=== PATIENT | male | born 1990 | race Caucasian/White ===

== ENCOUNTER 2024-10-14 21:07 | Emergency (ER) | payer OTHER, SELFPAY ==
[2024-10-14 21:14] VITALS: BP 143/90
[2024-10-14 21:27] LABS: Urine Character Clear (Clear)
[2024-10-14 21:28] LABS: Hematocrit 43.4 % (39.0-52.0); Hemoglobin 15.3 g/dL (13.0-18.0); Mean Corp Hgb Conc. 35.3 g/dL (33.0-37.0); Mean Corpuscular Volume 85.4 fL (80.0-94.0); Nucleated Red Blood Cells % 0 % (-); Platelet Count 370 10^3/uL (130-400); Red Cell Dist. Width 12.1 % (11.5-14.5)
[2024-10-14 21:34] LABS: Urine Red Blood Cell 30-40 /HPF (0-2); Urine Squamous Cell >30 /LPF (Few)
[2024-10-14 21:44] LABS: ALT (SGPT) 35 U/L (0-50); AST (SGOT) 33 U/L (17-59); Albumin 4.9 g/dl (3.5-5.0); Alkaline Phosphatase 53 U/L (38-126); Blood Urea Nitrogen 16 mg/dl (9-20); Calcium 10.7 mg/dl (8.4-10.2); Carbon Dioxide 21 mmol/L (22-30); Chloride 105 mmol/L (98-107); Glucose 107 mg/dl (70-99); Potassium 4.6 mmol/L (3.5-5.1); Sodium 135 mmol/L (135-145); Total Protein 7.9 g/dl (6.3-8.2); eGFR > 60.00
--- NOTE | 2024-10-14 23:50 | ED.GENMED ---
History of Present Illness
General
Chief Complaint: Flank Pain
Source: patient and family
Time Seen by Provider: 10/14/24 23:38
History of Present Illness
History of Present Illness:
34-year-old male with past medical history of hypothyroidism and autism presenting to the ER for evaluation of right flank pain that began earlier this morning, waxes and wanes, radiating towards the right lower abdomen, mildly nauseous earlier but
now resolved and stating sensation as to if he needs to have a bowel movement. Denies any history of similar. Did not take anything other than MiraLAX for symptoms but states this did not give him much relief. Denies any fevers, chills, rigors,
urinary frequency/urgency/dysuria or hematuria.
Past History
Past History
ED Past Medical History: Hypothyroidism and Psychiatric
ED Past Surgical History: Appendectomy
Social History
Tobacco: Non-smoker
Alcohol: None
Drug: None
Personal: Single
Living: with family
Review of Systems
Review of Systems
All Other Systems: ROS reviewed and negative except as documented in HPI and ROS
Phy Exam
Physical Exam
Physical Exam:
GENERAL: Alert , in no apparent distress
EYE: clear conjunctiva b/l
HEAD: NCAT
ENT: o/p clr, mmm.
ABDOMEN: Soft, without focal tenderness, no r/g, no cvat
NEUROLOGICAL: Alert and oriented
SKIN: Warm and dry, skin intact.
MUSCULOSKELETAL: No edema, well perfused.
PSYCH: Normal and appropriate interaction.
Scores
Heart Failure Risk
Heart Failure Risk Score: Not Applicable
Heart Score for Chest Pain Patients
STEMI patient?: Not applicable
Withdrawal Assessment of Alcohol
Withdrawal Assessment Completed?: Not applicable
Course
Orders/Labs/Results
Orders:
Orders
10/14/24 21:22
Complete Blood Count/With Diff Urgent
Comprehensive Metabolic Panel Urgent
Urinalysis Reflex To Culture Urgent
Date Specimen was Collected: 10/14/24
Time Specimen was Collected: 21:17
Urine Microscopic Reflex Cult Urgent
Urine Culture Urgent
JURGEN Source: U
Specimen Description:
Date Specimen was Collected: 10/14/24
Time Specimen was Collected: 21:17
10/14/24 21:53
CT Abd/pel Without Iv Or Oral Urgent
Comment:
Reason For Exam: R flank pain, probbaly kidney stone
10/14/24 23:49
Ibuprofen [Motrin] 800 mg PO NOW STA
Oxycodone/Acetaminophen [Percocet 5/325] 1 tablet PO NOW STA
Tamsulosin [Flomax] 0.4 mg PO NOW STA
Abnormal Lab Results
10/14/24
21:22
WBC 12.4 H 10^3/uL
(4.8-10.8)
Absolute Neuts (auto) 9.3 H 10^3/uL
(1.4-6.5)
Absolute Monos (auto) 1.0 H 10^3/uL
(0.1-0.6)
Neutrophils % 75.3 H %
(42.2-75.2)
Lymphocytes % 15.6 L %
(20.5-51.1)
Carbon Dioxide 21 L mmol/L
(22-30)
Glucose 107 H mg/dl
(70-99)
Calcium 10.7 H mg/dl
(8.4-10.2)
Ur Occult Blood Reflex 4+ A
(Negative)
Leukocyte Esterase Rfl 1+ A
(Negative)
Urine RBC 30-40 A /HPF
(0-2)
Urine Bacteria (Reflex) Few A
(Negative)
Urine Albumin (Reflex) 1+ A
(Neg - Trace)
10/14/24 21:22
10/14/24 21:22
Vital Signs
Initial and Last Documented VS:
Initial Vital Signs
Temp Pulse Resp BP Pulse Ox
98.4 F 91 20 143/90 99
10/14/24 21:14 10/14/24 21:14 10/14/24 21:14 10/14/24 21:14 10/14/24 21:14
Last Documented Vital Signs
Temp Pulse Resp BP Pulse Ox
98.5 F 91 20 143/90 99
10/15/24 00:05 10/14/24 21:14 10/14/24 21:14 10/14/24 21:14 10/14/24 23:50
MDM/Problems Addressed
Differential Diagnosis Includes:
Renal/ureteral colic
Urinary tract infection
constipation
Colitis
diverticulitis
Musculoskeletal back pain
MDM/Problems Addressed:
34-year-old male presented to the ER for evaluation of a sudden onset of right flank pain, nausea and sensation of tenesmus. Symptoms now mostly resolved. Labs and imaging have been ordered from triage which shows a 3 to 4 mm distal ureteral stone
just proximal to the UVJ. Urinalysis without signs of infection. Labs do noted leukocytosis but otherwise reassuring with normal renal function. I did offer the patient pain medication however he declined IV medications and was instead okay with
oral medications. Will send home with prescription for Flomax, pain control and antiemetics. Information for urology provided. Patient aware of return precautions to the ER.
*Radiology
Radiology exam reviewed: radiology read reviewed
*Pulse Oximetry
SaO2: 99
Oxygen Mode of Delivery: Room air
Patient hypoxic: no
*Critical Care Note
Total Time (30-74mins, 75-104mins- exclusive of procedures): Not Applicable
Patient Management
Social determinants of health affecting care: Living situation and Strong social support
ED Attending Note
-
Portions of this chart may have been created with voice recognition software.� Occasional wrong word or��sound alike� substitutions may have occurred due to the inherent limitations of voice recognition software.
Discharge Plan
Departure
Patient Disposition: Home (Routine Discharge)
Date of Disposition: 10/14/24
Time of Disposition: 23:50
Patient with high blood pressure during this ER visit?: Yes
Discharge Problem:
Ureterolithiasis
Instructions: Kidney Stones (DC)
Prescriptions:
New
naproxen 500 mg tablet
500 mg PO BID PRN (Reason: Pain) Qty: 10 0RF
oxycodone-acetaminophen [Percocet] 5-325 mg tablet
1 tab PO Q6HPRN PRN (Reason: pain) Qty: 8 0RF
tamsulosin [Flomax] 0.4 mg capsule
0.4 mg PO DAILY Qty: 10 0RF
ondansetron 4 mg tablet,disintegrating
4 mg PO TIDPRN PRN (Reason: nausea/vomiting) Qty: 10 0RF
Referrals:
Niels Rollins MD [Active, Urology]
Interventions
Interventions:
*Risk Screen - Suicide Last Done: 10/14/24 21:14
*General Assessment Last Done: 10/14/24 21:14
*Neglect/Abuse Screening Last Done: 10/14/24 21:14
*ED- Fall Risk Assessment Last Done: 10/14/24 23:41
*ED COVID-19 Vaccine History Last Done: 10/14/24 23:41
*Nursing Disposition Last Done: 10/15/24 00:07
YU-Kkwdho-Lfflqrfrqd Assessment Last Done: 10/14/24 23:42
ED-Male Genitourinary Assessment Last Done: 10/14/24 23:42
Discharge Date and Time
Discharge Date/Time: 10/15/24 00:19
Print Language: LAO
[2024-10-15] MEDS: FLOMAX 0.4 MG PO (00:03)
[2024-10-15] MEDS: MOTRIN 800 MG PO (00:03)
[2024-10-15] MEDS: PERCOCET 5/325 1 TABLET PO (00:04)
== END 2024-10-15 00:19 | disposition home or self-care (01) ==
LOC: EMR 21:07
PROVIDERS: Student in an Organized Health Care Education/Training Program; EMERGENCY PHYSICIAN Emergency Medicine; FAMILY PHYSICIAN Internal Medicine
DX: N13.2 Hydronephrosis with renal and ureteral calculous obstruction (principal); E03.9 Hypothyroidism, unspecified; F84.0 Autistic disorder; Z90.49 Acquired absence of other specified parts of digestive tract
CPT/HCPCS: 99284; 74176; 80053; 81003; 81015; 85025; 87086

== ENCOUNTER 2024-11-13 08:27 | Emergency (ER) | payer OTHER, SELFPAY ==
[2024-11-13 08:29] VITALS: BP 146/103
[2024-11-13 08:47] VITALS: BMI 32.8
--- NOTE | 2024-11-13 08:55 | ED.GENMED ---
History of Present Illness
General
Chief Complaint: Flank Pain
Time Seen by Provider: 11/13/24 08:32
History of Present Illness
History of Present Illness:
34-year-old male with history of autism spectrum disorder, hypothyroidism, history of appendectomy presenting for right-sided back pain. Patient reports symptoms started acutely this morning. Reports similar symptoms about a month ago at which
time he was diagnosed with a kidney stone. The pain after that incident had improved, so he presumes that he may have passed the stone. Reports this morning he did have some urgency with urination. Denies dysuria. Denies fever. Denies chest
pain or difficulty breathing. Denies any pain to the abdomen. Mother bedside notes that presentation is very similar to last ED visit. Denies additional acute medical complaints.
Past History
Past History
ED Past Medical History: Hypothyroidism and Psychiatric
ED Past Surgical History: Appendectomy
Social History
Tobacco: Non-smoker
Alcohol: None
Drug: None
Personal: Single
Living: with family
Phy Exam
Physical Exam
Physical Exam:
General: Well-appearing, no clinical signs of dehydration, nontoxic and in no acute distress
HEENT: protecting airway
Neck: appears supple
CV: Normal heart rate, regular rhythm
Resp: No accessory muscle use, no increased work of breathing, lungs clear to auscultation bilaterally
Abd: Soft and non-distended, no tenderness to palpation, normal bowel sounds
Extremities: No deformities, no swelling, no erythema
Neuro: alert, no focal neurologic deficit
: deferred
Rectal: deferred
Psych: Normal affect
Skin: Intact
Course
Orders/Labs/Results
Orders:
Orders
11/13/24 08:50
0.9% Sodium Chloride 1000 ml [Nss] 1,000 ml IV BOLUS
Ketorolac [Toradol] 15 mg IV NOW STA
11/13/24 08:52
CT Abd/pel Without Iv Or Oral Urgent
Comment:
Reason For Exam: right sided pain, hx stones
11/13/24 09:04
Complete Blood Count/With Diff Urgent
Comprehensive Metabolic Panel Urgent
Urinalysis Reflex To Culture Urgent
Date Specimen was Collected: 11/13/24
Time Specimen was Collected: 09:02
Urine Microscopic Reflex Cult Urgent
11/13/24 11:00
Morphine Sulfate 2 mg IV NOW STA
Abnormal Lab Results
11/13/24
09:04
Glucose 117 H mg/dl
(70-99)
Ur Occult Blood Reflex 2+ A
(Negative)
Urine RBC 3-6 A /HPF
(0-2)
Urine Albumin (Reflex) 1+ A
(Neg - Trace)
11/13/24 09:04
11/13/24 09:04
Vital Signs
Initial and Last Documented VS:
Initial Vital Signs
Pulse Resp BP Pulse Ox
71 18 146/103 100
11/13/24 08:29 11/13/24 08:29 11/13/24 08:29 11/13/24 08:29
Last Documented Vital Signs
Temp Pulse Resp BP Pulse Ox
97.7 F 71 18 141/91 98
11/13/24 09:02 11/13/24 08:29 11/13/24 08:29 11/13/24 10:00 11/13/24 10:15
MDM/Problems Addressed
MDM/Problems Addressed:
34-year-old male presenting to the emergency department for right sided back pain, acute onset. Vital signs on arrival significant for mild hypertension.
On exam patient is in no acute distress, however does appear uncomfortable secondary to pain, diaphoretic. Minimal reproduction of pain to the right lower back, no significant tenderness in the abdomen. On review of EMR, patient recently seen in
the hospital on 10/14, diagnosed with a distal right UVJ stone. Given position and size, suspect the patient is already passed that stone and this is likely a new stone. Patient nontoxic with lower suspicion for infected stone. Plan for laboratory
analysis and repeat CT imaging. Toradol ministered for pain
11:15 - Patient's labs are unremarkable, no leukocytosis, no sign of urinary tract infection. CT shows a 3 mm stone at the right UVJ, consistent with patient's symptoms. There is a mild right hydronephrosis. Reassessment, does note that his pain
has improved, still feels the urinary urgency. Due to recent kidney stone, has an appointment with urology next week. Ultimately feel he is stable for discharge with outpatient follow-up. Will provide prescription for Percocet for severe pain, as
well as Flomax. Return precautions discussed.
*Pulse Oximetry
SaO2: 100
Oxygen Mode of Delivery: Room air
Patient hypoxic: no
*Critical Care Note
Total Time (30-74mins, 75-104mins- exclusive of procedures): Not Applicable
ED Attending Note
-
Portions of this chart may have been created with voice recognition software.� Occasional wrong word or��sound alike� substitutions may have occurred due to the inherent limitations of voice recognition software.
Discharge Plan
Departure
Prescriptions:
No Action
naproxen 500 mg tablet
500 mg PO BID PRN (Reason: Pain) Qty: 10 0RF
tamsulosin [Flomax] 0.4 mg capsule
0.4 mg PO DAILY Qty: 10 0RF
ondansetron 4 mg tablet,disintegrating
4 mg PO TIDPRN PRN (Reason: nausea/vomiting) Qty: 10 0RF
oxycodone-acetaminophen [Percocet] 5-325 mg tablet
1 tab PO Q6HPRN PRN (Reason: pain) Qty: 10 0RF
oxycodone-acetaminophen [Percocet] 5-325 mg tablet
1 tab PO Q6H PRN (Reason: Pain) Qty: 8 0RF
Referrals:
Cheko Espinoza DO [Family Provider, Internal Medicine]
Interventions
Interventions:
*Risk Screen - Suicide Last Done: 11/13/24 08:29
*General Assessment Last Done: 11/13/24 08:29
*Neglect/Abuse Screening Last Done: 11/13/24 08:29
*ED- Fall Risk Assessment Last Done: 11/13/24 08:47
*ED COVID-19 Vaccine History Last Done: 11/13/24 08:47
WM-Aspvza-Zopibeecwf Assessment Last Done: 11/13/24 08:47
ED-Male Genitourinary Assessment Last Done: 11/13/24 08:47
Discharge Date and Time
Print Language: SINHALA
[2024-11-13] MEDS: TORADOL 15 MG IV (08:59)
[2024-11-13] MEDS: NSS 1000 IV (08:59)
[2024-11-13 09:02] VITALS: BP 142/103
[2024-11-13 09:20] LABS: Hematocrit 42.0 % (39.0-52.0); Hemoglobin 14.0 g/dL (13.0-18.0); Mean Corp Hgb Conc. 33.3 g/dL (33.0-37.0); Mean Corpuscular Volume 88.1 fL (80.0-94.0); Nucleated Red Blood Cells % 0 % (-); Platelet Count 273 10^3/uL (130-400); Red Cell Dist. Width 12.8 % (11.5-14.5)
[2024-11-13 09:27] LABS: Urine Character Clear (Clear)
[2024-11-13 09:39] LABS: ALT (SGPT) 34 U/L (0-50); AST (SGOT) 29 U/L (17-59); Albumin 4.3 g/dl (3.5-5.0); Alkaline Phosphatase 54 U/L (38-126); Blood Urea Nitrogen 18 mg/dl (9-20); Calcium 9.1 mg/dl (8.4-10.2); Carbon Dioxide 25 mmol/L (22-30); Chloride 107 mmol/L (98-107); Estimated Creatinine Clearance > 125 ml/min; Glucose 117 mg/dl (70-99); Potassium 3.8 mmol/L (3.5-5.1); Sodium 138 mmol/L (135-145); Total Protein 6.8 g/dl (6.3-8.2); eGFR > 60.00
[2024-11-13 10:00] VITALS: BP 141/91
[2024-11-13 10:28] LABS: Urine White Cell 0-2 /HPF (0-5)
[2024-11-13] MEDS: MORPHINE SULFATE 2 MG IV (11:18)
[2024-11-13 12:12] VITALS: BP 129/93
== END 2024-11-13 12:17 | disposition home or self-care (01) ==
LOC: EMR 08:27
PROVIDERS: EMERGENCY PHYSICIAN Student in an Organized Health Care Education/Training Program; FAMILY PHYSICIAN Internal Medicine
DX: N13.2 Hydronephrosis with renal and ureteral calculous obstruction (principal); F84.0 Autistic disorder; E03.9 Hypothyroidism, unspecified; Z87.442 Personal history of urinary calculi
CPT/HCPCS: 99284; 96374; 96375; 96361; 74176; 80053; 81003; 81015; 85025

== ENCOUNTER → 2025-01-22 09:06 | Outpatient (REF) | payer OTHER, MEDICAID, SELFPAY | LOC: HWRAD 09:06 | PROVIDERS: ATTENDING PHYSICIAN Specialist; FAMILY PHYSICIAN Internal Medicine | DX: N20.1 Calculus of ureter (principal) | CPT/HCPCS: 76770 ==